=== PATIENT | male | born 1960 | race Caucasian/White ===

== ENCOUNTER 2019-07-09 23:40 | Emergency (ER) | payer SELFPAY ==
[~2019-07-09] VITALS: Ht 172.7 cm; Wt 72.7 kg
[2019-07-09 23:47] VITALS: BP 115/71; Ht 172.7 cm; Wt 72.7 kg
[2019-07-10 00:10] LABS: APPEARANCE CLEAR (CLEAR); BILIRUBIN NEGATIVE (NEGATIVE); COLOR YELLOW (YELLOW); GLUCOSE NEGATIVE (NEGATIVE); KETONE NEGATIVE (NEGATIVE); NITRITE NEGATIVE (NEGATIVE); PROTEIN NEGATIVE (NEGATIVE); SPECIFIC GRAVITY 1.015 (1.005-1.020); UROBILINOGEN NORMAL (NORMAL)
--- NOTE | 2019-07-10 00:12 | NUR ---
PATIENT STATES HE HAS BEEN DRINKING BEER THIS EVENING. AT LEAST 8 BEERS. INFORMED ED STAFF TO CALL JAIL WITH LAB RESULTS.
[2019-07-10 00:22] LABS: HEMATOCRIT 40.2 % (42.0-54.0); HEMOGLOBIN 13.9 g/dL (13.5-17.5); MCH 33.6 pg (26.0-34.0); MCHC 34.6 g/dL (31.0-37.0); MCV 97.1 fL (80.0-100.0); MEAN PLATELET VOLUME 8.5 fL (7.4-10.4); PLATELET COUNT 236 10x3/uL (130-400); RBC 4.14 10x6/uL (4.20-6.10); RDW 11.6 % (11.5-14.5); WBC 5.9 10x3/uL (4.8-10.8)
[2019-07-10 00:32] LABS: CALC OSMOLALITY 278 mosm/kg (275-300); CALCIUM 8.5 mg/dL (8.5-10.1); CARBON DIOXIDE 28.6 mmol/L (21.0-32.0); CHLORIDE - SERUM 105 mmol/L (98-107); CREATININE - SERUM 0.8 mg/dL (0.6-1.3); GLUCOSE 99 mg/dL (74-106); SODIUM 141 mmol/L (136-145); UREA NITROGEN 7 mg/dL (7-18); eGFR NON AFRICAN AMERICAN > 90 mL/min (90-120)
[2019-07-10 00:34] LABS: UDS - AMPHET NEGATIVE QUAL (NEGATIVE); UDS - BARB NEGATIVE QUAL (NEGATIVE); UDS - BENZO NEGATIVE QUAL (NEGATIVE); UDS - COCAINE NEGATIVE QUAL (NEGATIVE); UDS - OPIATE NEGATIVE QUAL (NEGATIVE); UDS - PCP NEGATIVE QUAL (NEGATIVE); UDS - THC POSITIVE QUAL (NEGATIVE)
[2019-07-10 00:41] LABS: ALBUMIN 3.5 g/dL (3.4-5.0); ALKALINE PHOSPHATASE 62 U/L (46-116); ALT (SGPT) 20 U/L (10-68); BILIRUBIN - TOTAL 0.19 mg/dL (0.2-1.3)
[2019-07-10 00:49] LABS: EOSINOPHILS 1 % (0-7); LYMPHOCYTES 59 % (15-50); MONOCYTES 4 % (2-11); NEUTROPHILS 36 % (40-80); PLATELET ESTIMATE NORMAL
--- NOTE | 2019-07-10 08:46 | NUR ---
PT IS A HIGH RISK PER ASSESSMENT. PT WAS FOUND WITH ROPE IN HAND. PT ADMITTED TO WANTING TO HANG HISSELF, BUT THAT HE CALLED FOR HELP FIRST. HE DID ADMIT TO CALLING BACK AND STATING THAT HE WASN'T GOING TO DO IT, BUT THE EMS WAS ALREADY AT HIS PLACE. PT ADMITS TO MULTIPLE PREVIOUS ATTEMPTS. PT STATED HE HAS A DAUGHTER BUT SHE DOESN'T HELP HIM. PT DENIES DRUG USE BUT DOES ADMIT TO DRINKING TOO MUCH. SITTER ORDERED AND AT BEDSIDE PER DR. CHAVES. ATTENDING AND CHARGE NURSE NOTIFIED OF FINDING.
== END 2019-07-10 14:15 ==
LOC: D.ER 23:40
PROVIDERS: Emergency Medicine
DX: R45.851 Suicidal ideations (principal); F32.9 Major depressive disorder, single episode, unspecified; F19.10 Other psychoactive substance abuse, uncomplicated; F10.21 Alcohol dependence, in remission; Z87.891 Personal history of nicotine dependence

== ENCOUNTER 2019-08-13 22:11 | Inpatient (IN) | payer MEDICAID ==
[~2019-08-13] VITALS: Ht 172.7 cm; Wt 66.1 kg
--- NOTE | 2019-08-13 22:11 | NUR ---
INCONT OF STOOL UPON ARRIVAL. PT CLEANED SELF.
[2019-08-13] MEDS ORDERED: SLEEPING PILL (22:18)
[2019-08-13] MEDS ORDERED: ZOLOFT50 MG PO (22:18)
[2019-08-13] MEDS ORDERED: NORVASC5 MG PO (22:19)
[2019-08-13] MEDS ORDERED: LITHIUM CARBON300 MG PO (22:19)
--- NOTE | 2019-08-13 22:30 | NUR ---
CALL TO POISON CONTROL. REPORT OF MEDICATIONS REPORTED TO HAVE BEEN TAKEN BY PT.FOR SERTRALINE NEED REG LABS, TYLENOL LEVEL, ASA, EGK, TOX SCREEN. MAY BENEFIT FROM CHARCOLE OR GASTRIC LAVAGE IF PT ALERT TO SWALLOW. MAY NOT BENEFIT D/T TIMEFRAME. FOR LITHIUM NEED ELECTROLYTES, LITHIUM LEVELS Q2HRS, RENALFUNCTIONS, IV FLUIDS, CLOSE MONITORING. FOR AMLODIPINE MONITOR FOR HYPOTENSION AND BRADYCARDIA, GLUCOSE LEVEL, MAY NEED TO GIVE ATROPINE FOR BRADYCARDIA, CALCIUM FOR HYPOTENSION, IF NEEDED MAY NEED TO GIVE GLUCAGON AND HIGH DOSE INSULIN. CALL POISON CONTROL FOR DOSES IF NEEDED. ALSO NEED ABG'S. ERP INFORMED ORDER RECEIVED FOR CHARCOLE WITH SORBITOL.
--- NOTE | 2019-08-13 23:00 | NUR ---
DR CHAVES NOTIFIED AND SITTER ORDERED. SITTER AT BEDSIDE. NOTIFIED CHARGE NURSE AND ATTENDING IN REGARDS TO ASSESSMENT FINDINGS. RESOURCES GIVEN TO PT AND SAFETY PLAN INITIATED.
--- NOTE | 2019-08-13 23:00 | NUR ---
REPORT GIVEN TO CIRO CODY.
[2019-08-13 23:04] LABS: BASOPHILS 0.5 % (0-2); EOSINOPHILS 1.9 % (0-7); HEMATOCRIT 43.8 % (42.0-54.0); HEMOGLOBIN 15.5 g/dL (13.5-17.5); IMMATURE GRANULOCYTES 0.3 % (0-5); LYMPHOCYTES 12.3 % (15-50); MCH 33.8 pg (26.0-34.0); MCHC 35.4 g/dL (31.0-37.0); MCV 95.6 fL (80.0-100.0); MEAN PLATELET VOLUME 8.8 fL (7.4-10.4); MONOCYTES 6.5 % (2-11); NEUTROPHILS 78.5 % (40-80); PLATELET COUNT 250 10x3/uL (130-400); RBC 4.58 10x6/uL (4.20-6.10); RDW 11.9 % (11.5-14.5); WBC 16.1 10x3/uL (4.8-10.8)
[2019-08-13 23:05] VITALS: BP 114/70
--- NOTE | 2019-08-13 23:06 | NUR ---
PT LAYING IN BED. PSYCH NURSE AT BEDSIDE. COLOR WNL FOR RACE. RESPIRATIONS ARE EVEN AND UNLABORED. COLOR WNL FOR RACE. VSS. WILL CONTINUE TO MONITOR.
[2019-08-13 23:19] LABS: CALC OSMOLALITY 272 mosm/kg (275-300); CALCIUM 8.6 mg/dL (8.5-10.1); CARBON DIOXIDE 25.9 mmol/L (21.0-32.0); CHLORIDE - SERUM 102 mmol/L (98-107); GLUCOSE 95 mg/dL (74-106); LITHIUM 2.8 mmol/L (0.60-1.20); POTASSIUM - SERUM 3.9 mmol/L (3.5-5.1); SALICYLATES 5.2 mg/dL (2.8-20.0); SODIUM 137 mmol/L (136-145); UREA NITROGEN 9 mg/dL (7-18); eGFR NON AFRICAN AMERICAN 81 mL/min (90-120)
[2019-08-13 23:27] LABS: ALBUMIN 3.9 g/dL (3.4-5.0); ALKALINE PHOSPHATASE 82 U/L (46-116); ALT (SGPT) 30 U/L (10-68); MAGNESIUM - SERUM 2.1 mg/dL (1.8-2.4); PROTEIN - SERUM 7.7 g/dL (6.4-8.2)
[2019-08-14] VITALS (25 sets, daily range): BP systolic 103–134; BP diastolic 55–83; Ht 172.7 cm; Wt 66.1 kg
[2019-08-14 00:37] LABS: UDS - AMPHET NEGATIVE QUAL (NEGATIVE); UDS - BARB NEGATIVE QUAL (NEGATIVE); UDS - BENZO NEGATIVE QUAL (NEGATIVE); UDS - COCAINE NEGATIVE QUAL (NEGATIVE); UDS - OPIATE NEGATIVE QUAL (NEGATIVE); UDS - PCP NEGATIVE QUAL (NEGATIVE); UDS - THC NEGATIVE QUAL (NEGATIVE)
[2019-08-14 00:40] LABS: APPEARANCE CLEAR (CLEAR); BILIRUBIN NEGATIVE (NEGATIVE); COLOR YELLOW (YELLOW); GLUCOSE NEGATIVE (NEGATIVE); KETONE NEGATIVE (NEGATIVE); NITRITE NEGATIVE (NEGATIVE); PROTEIN 1+ mg/dL (NEGATIVE); SPECIFIC GRAVITY 1.015 (1.005-1.020); UROBILINOGEN NORMAL (NORMAL)
[2019-08-14 00:42] LABS: BACTERIA NONE SEEN /hpf (NEGATIVE); EPITHELIAL CELLS 0-5 /hpf (0-5); RED CELLS - URINE 0-5 /hpf (0-5); WHITE CELLS - URINE 0-5 /hpf (NEGATIVE)
--- NOTE | 2019-08-14 01:00 | NUR ---
PT LAYING IN BED RESPIRATIONS ARE EVEN AND UNLABORED. NO DISTRESS NOTED. COLOR WNL FOR RACE. SITTER AT BEDSIDE. VSS. PATIENT ALERT AND ORIENTED X4.
--- NOTE | 2019-08-14 01:12 | NUR ---
PATIENT PROVIDED WITH ICE WATER OK PER EDAngelo HINTON. ALSO PROVIDED WITH WARM BLANKET.
--- NOTE | 2019-08-14 02:11 | NUR ---
SPOKE WITH DR. DORSEY AND UPDATED ON REPEAT LITHIUM LEVELS.
--- NOTE | 2019-08-14 02:14 | NUR ---
UPDATED POISON CONTROL ON REPEAT LITHIUM LEVEL.
--- NOTE | 2019-08-14 02:20 | NUR ---
CALLED REPORT TO CIRO ARZATE
--- NOTE | 2019-08-14 02:45 | NUR ---
PT ARRIVED ON UNIT VIA STRETCHER ACCOMOPANIED BY ER STAFF - CONNECTED TO ICU MONITORS, NEEDED TO USE THE RESTROOM AT THIS TIME. ALL BELONGINGS REMOVED FROM ROOM, ADMIT HISTORY, ASSESSMENT, AND SRS SCREENING COMPLETED AT THIS TIME. VSS CPOC
--- NOTE | 2019-08-14 04:43 | NUR ---
PT STATES NAUSEA HAS SUBSIDED SINCE RECEIVING MEDICATION. DENIES FURTHER NEEDS
--- NOTE | 2019-08-14 06:25 | NUR ---
NEPHROLOGY PAGED REGARDING LITHIUM TOXICITY LEVEL
--- NOTE | 2019-08-14 07:00 | NUR ---
PT RESTING IN BED, VSS AND WNL. SITTER AT BEDSIDE, ANSWERS ALL QUESTIONS. DENIES ANY NEEDS AT THIS TIME, BED ALARM ON. WILL CONT TO FOLLOW POC
--- NOTE | 2019-08-14 09:00 | NUR ---
PT RESTING IN BED, SITTER AT BEDSIDE, VSS AND WNL. BED ALARM ON. DENIES ANY NEEDS AT THIS TIME, WILL CONT TO FOLLOW POC
--- NOTE | 2019-08-14 11:00 | NUR ---
PT RESTING IN BED. VSS AND WNL. BED ALARM ON. SITTER AT BEDSIDE. DENIES ANY NEEDS AT THIS TIME. WILL CONT TO FOLLOW POC
--- NOTE | 2019-08-14 12:10 | NUR ---
Dialysis Coordinator: Initially notified this was a newstart HD patient. Accessed chart as so, per note, patient was [facility], and HD was not initiated. No further needs/orders regarding placement at this time. SYLVAIN Connelly DC.
--- NOTE | 2019-08-14 13:00 | NUR ---
PT RESTING IN BED, VSS AND WNL. DENIES ANY NEEDS AT THIS TIME, BED ALARM ON. SITTER AT BEDSIDE, WILL CONT TO FOLLOW POC
--- NOTE | 2019-08-14 15:00 | NUR ---
PT RESTING IN BED. VSS AND WNL. DENIES ANY NEEDS AT THIS TIME, SITTER AT BEDSIDE, WILL CONT TO FOLLOW POC
--- NOTE | 2019-08-14 15:33 | NUR ---
SITTER AT BEDSIDE FOR SUICIDE RISK. PT DENIES SI. PT IS FINE WITH GOING TO A PSYCH FACILITY FOR ADDITIONAL HELP.
[2019-08-15] VITALS (14 sets, daily range): BP systolic 109–135; BP diastolic 58–88
--- NOTE | 2019-08-15 00:46 | NUR ---
PATIENT SLEEPING WITH NO CHANGES IN CONDITION. CALL LIGHT WITHIN REACH, BED IN LOW POSITION. SITTER AT DOOR.
[2019-08-15 05:05] LABS: BASOPHILS 0.5 % (0-2); EOSINOPHILS 3.9 % (0-7); HEMATOCRIT 37.9 % (42.0-54.0); HEMOGLOBIN 12.9 g/dL (13.5-17.5); IMMATURE GRANULOCYTES 0.1 % (0-5); LYMPHOCYTES 18.3 % (15-50); MCH 32.5 pg (26.0-34.0); MCV 95.5 fL (80.0-100.0); MEAN PLATELET VOLUME 9.3 fL (7.4-10.4); MONOCYTES 10.2 % (2-11); RBC 3.97 10x6/uL (4.20-6.10); RDW 11.6 % (11.5-14.5)
[2019-08-15 05:24] LABS: PLATELET COUNT 198 10x3/uL (130-400); WBC 8.5 10x3/uL (4.8-10.8)
[2019-08-15 05:28] LABS: CALC OSMOLALITY 274 mosm/kg (275-300); CALCIUM 8.3 mg/dL (8.5-10.1); CARBON DIOXIDE 32.1 mmol/L (21.0-32.0); CHLORIDE - SERUM 103 mmol/L (98-107); CREATININE - SERUM 0.8 mg/dL (0.6-1.3); GLUCOSE 91 mg/dL (74-106); PHOSPHOROUS 2.8 mg/dL (2.5-4.9); POTASSIUM - SERUM 3.2 mmol/L (3.5-5.1); SODIUM 139 mmol/L (136-145); UREA NITROGEN 5 mg/dL (7-18); eGFR NON AFRICAN AMERICAN > 90 mL/min (90-120)
--- NOTE | 2019-08-15 07:00 | NUR ---
PT RESTING IN BED, VSS AND WNL, BED ALARM ON. PT HAD NC LAYING BESIDE HIM ON BED AND 02 SAT WAS 94%. WILL LEAVE NC OFF AND MONITOR. DENIES ANY NEEDS AT THIS TIME, SITTER AT BEDSIDE. WILL CONT TO FOLLOW POC
--- NOTE | 2019-08-15 07:30 | NUR ---
HERE, NOTIFIED HIM OF LOW POTASSIUM. NEW ORDERS RECIEVED TO START ELECTROLYTE PROTOCOL.
--- NOTE | 2019-08-15 10:00 | NUR ---
CHG BATH GIVEN, FULL LINEN CHANGE PROVIDED. SPOKE WITH AND PER PT CAN TRANSFER TO THE FLOOR IF UNABLE TO FIND INPATIENT PSYCH PLACEMENT TODAY. NOTIFIED CASE MANAGEMENT AND CHARGE NURSE. VSS AND WNL. SITTER AT BEDSIDE, WILL CONT TO FOLLOW POC
--- NOTE | 2019-08-15 12:00 | NUR ---
PT RESTING IN BED, VSS AND WNL, SITTER AT BEDSIDE, PT ATE 100% OF HIS LUNCH, DENIES ANY NEEDS AT THIS TIME, WILL CONT TO FOLLOW POC
--- NOTE | 2019-08-15 13:43 | NUR ---
GAVE ORDER TO SEND PT TO [facility], PT WAS ACCEPTED AND REPORT CALLED TO ILDA TANNER. DISCHARGE INSTRUCTIONS REVIEWED WITH PT AND ALL QUESTIONS ANSWERED. PIV REMOVED WITH CATHETER TIP INTACT. PT LEFT WITH [facility]
--- NOTE | 2019-08-15 15:20 | CN ---
PATIENT NAME:KEELY HUTTON MEDICAL RECORD: [id number] : 60 LOCATION:[id number] ADMIT DATE: 08/14/19 ACCOUNT: [id number] CONSULTING PHYSICIAN: RUMA CHAVES MD REFERRING PHYSICIAN: DOROTHY HORNER MD DATE OF CONSULTATION: 08/14/2019 IDENTIFYING DATA: The patient is 58 years old and he is admitted to the hospital secondary to an overdose. CHIEF COMPLAINT: Depression. HISTORY OF PRESENT ILLNESS: The patient endorses numerous neurovegetative depressive symptoms including feeling helpless, hopeless, isolated, and withdrawn. He relates most of this to financial troubles. He is also drinking 2-6 packs of beer a day. He became despondent yesterday and took an overdose of lithium and Zoloft. He has not been taking it for several days or perhaps even weeks, but yesterday decided to do so to kill himself. He tells me he did this freely and with full intention of killing himself because of his current situation. He denies any thoughts of harming others. He denies psychotic symptoms. ASSESSMENT: 1. Intentional overdose. 2. Major depression versus bipolar disorder. 3. Alcohol use disorder. PLAN: I suspect the patient probably is chronically depressed and not bipolar, but I will leave that to those who have seen him on an inpatient basis and had an opportunity to form a better opinion. From our standpoint, this patient is in need of inpatient psychiatric care and should be transferred there once medically stabilized. At this point, he is willing to go on a voluntary basis; however, if he changes his mind, it will be necessary to send him with a court order. He has a history of psychiatric troubles. History of overdose or attempts to hurt himself and he is stating flatly that he attempted to kill himself on this occasion. Obviously, he should be watched for any evidence of alcohol withdrawal. TRANSINT:[id number] Voice Confirmation ID: [id number] DOCUMENT ID: [id number] RUMA CHAVES MD at 1520 CC: [id number] DICTATION DATE: 08/14/19 1610 ANIMAL NUTRITIONIST: 08/14/192311 DIS IN 08/15/19 [facility] [address] [place] [address]
--- NOTE | 2019-08-15 18:33 | MORECARE ---
CASE MANAGEMENT DISCHARGE SUMMARY PATIENT: KEELY HUTTON UNIT: [id number] ADM DATE: 08/14/19 AGE: 58 : 60 SEX: M ROOM/BED: D.2315 AUTHOR: NATALIIA ROGEL PHYSICIAN: REFERRING PHYSICIAN: DOROTHY HORNER MD DATE OF SERVICE: 08/15/19 Discharge Plan Patient Name: KEELY HUTTON [facility] [facility] 1960 Planned Disposition: Psych facility Anticipated Discharge Date: Discharge Date: 08/15/2019 Expected LOS: Initial Reviewer: [email or web address] Initial Review Date: 08/15/2019 Generated: 08/15/19 7:32 pm Patient Name: KEELY HUTTON Page [id number] at 1833 All edits/amendments must be made on the electronic document DICTATION DATE: 08/15/191831 DIRECTOR WRITING: RUPERTO 08/15/191831 RPT#: [id number] DC DATE:08/15/19 STATUS: DIS IN [facility] [address] [place] [address] END OF REPORT
--- NOTE | 2019-08-15 18:47 | MORECARE ---
CASE MANAGEMENT DISCHARGE SUMMARY PATIENT: KEELY HUTTON UNIT: [id number] ADM DATE: 08/14/19 AGE: 58 : 60 SEX: M ROOM/BED: D.2315 AUTHOR: NATALIIA ROGEL PHYSICIAN: REFERRING PHYSICIAN: DOROTHY HORNER MD DATE OF SERVICE: 08/15/19 Discharge Plan Patient Name: KEELY HUTTON Facility: [facility]:[place] : 1960 Planned Disposition: Psych facility Anticipated Discharge Date: Discharge Date: 08/15/2019 Expected LOS: Initial Reviewer: [email or web address] Initial Review Date: 08/15/2019 Generated: 08/15/19 7:47 pm Comments DCP- Discharge Planning Updated by [email or web address]: Sheron Tarango on 08/15/19 5:[address] Patient Name: KEELY HUTTON Admission Status: ER Accout number: [id number] Admission Date: 08-14-2019 : 1960 Admission Diagnosis: Attending: JD Current LOS: 1 Anticipated DC Date: Planned Disposition: Psych facility Primary Insurance: [place]ICAID [place] Discharge Planning Comments: CM spoke with patient he agrees to go to inpatient psych facility. Patient has been accepted to [facility] and ambulance has been notified for transport. Metal Bonding Worker: Sheron Tarango Last DP export: 08/15/19 5:33 p Patient Name: KEELY HUTTON Page [phone] at 1847 All edits/amendments must be made on the electronic document DICTATION DATE: 08/15/191846 CARTON FILLING MACHINE OPERATOR: RUPERTO 08/15/191846 RPT#: [id number] DC DATE:08/15/19 STATUS: DIS IN [facility] [address] [place] [address] END OF REPORT
== END 2019-08-15 13:55 | disposition short-term general hospital (02) | DRG 918 ==
LOC: D.ER 22:11 → D.ICU 08-14 02:00
PROVIDERS: Emergency Medicine; Internal Medicine Nephrology; ADMIT Family Medicine; ATTEND Family Medicine
DX: T43.592A Poisoning by other antipsychotics and neuroleptics, intentional self-harm, initial encounter (principal); F17.203 Nicotine dependence unspecified, with withdrawal; I10 Essential (primary) hypertension; F32.9 Major depressive disorder, single episode, unspecified; F10.10 Alcohol abuse, uncomplicated; F39 Unspecified mood [affective] disorder

== ENCOUNTER 2020-02-16 22:08 | Emergency (ER) | payer OTHER ==
[~2020-02-16] VITALS: Ht 177.8 cm; Wt 70.5 kg
[~2020-02-16 22:08] MED LIST: LITHIUM CARBON300 MG PO; NORVASC5 MG PO; SLEEPING PILL; ZOLOFT50 MG PO
[2020-02-16 22:09] VITALS: Ht 177.8 cm; Wt 70.5 kg
[2020-02-16 22:31] LABS: BASOPHILS 1.1 % (0-2); EOSINOPHILS 3.4 % (0-7); HEMOGLOBIN 11.9 g/dL (13.5-17.5); IMMATURE GRANULOCYTES 0.5 % (0-5); LYMPHOCYTES 48.2 % (15-50); MCH 33.2 pg (26.0-34.0); MCHC 33.1 g/dL (31.0-37.0); MCV 100.6 fL (80.0-100.0); MEAN PLATELET VOLUME 8.9 fL (7.4-10.4); MONOCYTES 11.9 % (2-11); NEUTROPHILS 34.9 % (40-80); PLATELET COUNT 434 10x3/uL (130-400); RBC 3.58 10x6/uL (4.20-6.10); RDW 13.6 % (11.5-14.5); WBC 6.2 10x3/uL (4.8-10.8)
[2020-02-16 22:37] LABS: CALC OSMOLALITY 278 mosm/kg (275-300); CALCIUM 7.9 mg/dL (8.5-10.1); CARBON DIOXIDE 23.1 mmol/L (21.0-32.0); CHLORIDE - SERUM 106 mmol/L (98-107); GLUCOSE 87 mg/dL (74-106); POTASSIUM - SERUM 5.9 mmol/L (3.5-5.1); SODIUM 139 mmol/L (136-145); UREA NITROGEN 17 mg/dL (7-18); eGFR NON AFRICAN AMERICAN 81 mL/min (90-120)
[2020-02-16 22:52] LABS: BILIRUBIN NEGATIVE (NEGATIVE); GLUCOSE NEGATIVE (NEGATIVE); KETONE NEGATIVE (NEGATIVE); NITRITE NEGATIVE (NEGATIVE); UROBILINOGEN NORMAL (NORMAL)
[2020-02-16 22:54] LABS: ALBUMIN 3.1 g/dL (3.4-5.0); ALKALINE PHOSPHATASE 69 U/L (30-120); ALT (SGPT) 48 U/L (10-68); BILIRUBIN - TOTAL 0.66 mg/dL (0.2-1.3); CREATINE KINASE 185 UL (21-232); LIPASE 246 U/L (73-393); MAGNESIUM - SERUM 2.3 mg/dL (1.8-2.4); PRO BNP 76 pg/mL (0-125); PROTEIN - SERUM 6.7 g/dL (6.4-8.2); TROPONIN-I < 0.017 ng/mL (0.000-0.060)
[2020-02-16 22:57] LABS: UDS - AMPHET NEGATIVE QUAL (NEGATIVE); UDS - BARB NEGATIVE QUAL (NEGATIVE); UDS - BENZO NEGATIVE QUAL (NEGATIVE); UDS - COCAINE NEGATIVE QUAL (NEGATIVE); UDS - OPIATE NEGATIVE QUAL (NEGATIVE); UDS - PCP NEGATIVE QUAL (NEGATIVE); UDS - THC POSITIVE QUAL (NEGATIVE)
[2020-02-17 11:59] VITALS: BP 141/92
== END 2020-02-17 12:00 | disposition home or self-care (01) ==
LOC: D.ER 22:08
PROVIDERS: Family Medicine
DX: F10.129 Alcohol abuse with intoxication, unspecified (principal); Y90.9 Presence of alcohol in blood, level not specified